=== PATIENT | male | born 1990 | race Caucasian/White ===

== ENCOUNTER 2019-11-26 18:41 | Inpatient (IN) | payer MEDICAID ==
[~2019-11-26] VITALS: Ht 180.3 cm; Wt 112.0 kg
[2019-11-26 18:41] VITALS: BP_SYST 137
--- NOTE | 2019-11-26 18:41 | NUR ---
BROUGHT BACK TO BED #7 AND TRIAGED. REPORT GIVEN TO SAMARIA
--- NOTE | 2019-11-26 18:42 | NUR ---
Placed in room 07 . Placed on student support advisor, blood pressure machine and pulse oximeter. To gown for exam. Side rails up.
--- NOTE | 2019-11-26 18:43 | NUR ---
ER at bedside examining patient.
[2019-11-26] MEDS ORDERED: NITROGLYCERIN 1 INCH (GM) OINT. TP ONE (18:47)
[2019-11-26] MEDS ORDERED: MORPHINE 4 MG/ML INJ. SYRINGE IVP ONE (18:47)
--- NOTE | 2019-11-26 19:00 | NUR ---
Pt C/O occational chest pain off and on since . Today since approx 8 hours ago. Substernal pain, radiating to left arm. VSS.
[2019-11-26 20:08] LABS: CALCIUM 9.3 mg/dL (8.4-11.0); CREATININE 0.97 mg/dL (0.55-1.30); POTASSIUM 3.4 mmol/L (3.5-5.1)
[2019-11-26 20:09] LABS: BASOPHILS % (AUTO) 0.3 % (0.0-2.0); EOSINOPHILS # (AUTO) 0.2 K/uL (0.0-0.4); EOSINOPHILS % (AUTO) 2.5 % (0.0-4.0); HEMATOCRIT 47.6 % (36-54); HEMOGLOBIN 16.2 g/dL (14.0-18.0); LYMPHOCYTES # (AUTO) 2.5 K/uL (1.0-5.5); LYMPHOCYTES % (AUTO) 24.6 % (20.5-51.5); MEAN CORPUSCULAR HEMOGLOBIN 29 pg (27-31); MEAN CORPUSCULAR HGB CONC 34 % (32-36); MEAN CORPUSCULAR VOLUME 85 fL (79.0-98.0); MONOCYTES # (AUTO) 0.8 K/uL (0.0-1.0); MONOCYTES % (AUTO) 7.6 % (1.7-9.3); NEUTROPHILS # (AUTO) 6.5 K/uL (1.8-7.7); PLATELET COUNT (AUTO) 259 K/uL (130-430); RED BLOOD CELL COUNT(AUTO) 5.58 MIL/uL (4.2-6.2); RED CELL DISTRIBUTION WIDTH 12.9 % (9.0-15.0)
[2019-11-26 20:14] LABS: ALBUMIN 3.8 g/dL (3.4-4.8); TOTAL BILIRUBIN 0.5 mg/dL (0.0-1.0)
--- NOTE | 2019-11-26 20:21 | NUR ---
ADMIT NOTE Received pt from ER to the floor with a diagnosis of chest pain. Admission process initiated. patient oriented to pain management, safety and call light-teach back done.
[2019-11-26 20:33] VITALS: BP_SYST 142
--- NOTE | 2019-11-26 21:00 | NUR ---
OPENING NOTE: Patient is awake, AOx4. No s/s of acute distress noted. Breathing is even and unlabored. Patient does not have any complaints of chest pain or pain at this time. IV site is patent, without s/s of infiltration or infection. Bed locked in lowest position, bed alarm not indicated as patient is ambulates independently with a steady gait. Call light with patient. Patient educated on use and importance of call light. Patient verbalized understanding and demonstrated proper use. Patient had no other needs at this time. Will continue to monitor.
[2019-11-26] MEDS ORDERED: ONDANSETRON HCL 4 MG/2 ML VIAL IVP PRN (22:00)
[2019-11-26] MEDS ORDERED: HYDROcodone/ACETAMIN 5-325 MG TAB (NORCO/ VICODIN) PO PRN (22:00)
[2019-11-26] MEDS ORDERED: ALBUTEROL SULFATE 0.083% 2.5 MG/3 ML VIAL.NEB INH PRN (22:00)
[2019-11-26] MEDS ORDERED: MORPHINE 4 MG/ML INJ. SYRINGE IVP PRN (22:00)
[2019-11-26] MEDS ORDERED: POTASSIUM CHLORIDE 20 MEQ TAB.PRT.SR PO ONE (22:15)
[2019-11-26 22:50] VITALS: BP_SYST 142
[2019-11-26] MEDS: NACL 0.9% 1,000 ML IV SCH (23:06)
--- NOTE | 2019-11-26 23:18 | NUR ---
ROUNDS/IVF STARTED/SNACKS PROVIDED: Patient is awake at this time. IVF were started. Patient tolerated well. IV is infusing well without s/s of infiltration or infection. Patient was provided with snacks. No other needs at this time. Will continue to monitor.
[2019-11-27 00:56] VITALS: BP_SYST 116
--- NOTE | 2019-11-27 01:30 | NUR ---
Consultation Paged Reason for Consultation: Chest Pain Was consult called: Y Person who was notified: Pily Consulting Physician: Dr. Stock Hot Die Press Operator Ordering Physician: Dr. Garcia
--- NOTE | 2019-11-27 01:38 | NUR ---
ROUNDS: Patient is asleep at this time. Breathing is even and unlabored. Bed locked in lowest position, call light with patient. Will continue to monitor.
--- NOTE | 2019-11-27 03:27 | NUR ---
ROUNDS: Patient is asleep at this time. Breathing is even and unlabored. Bed locked in lowest position, call light with patient. Will continue to monitor.
--- NOTE | 2019-11-27 05:34 | NUR ---
ROUNDS: Patient is asleep at this time. Breathing is even and unlabored. Bed locked in lowest position, call light with patient. Will continue to monitor.
--- NOTE | 2019-11-27 06:26 | NUR ---
CLOSING NOTE: Patient asleep at this time., No s/s of acute distress noted. Breathing is even and unlabored. IVF patent without s/s of infiltration or infection. All fall/safety precautions maintained throughout the shift. All needs met throughout the shift. Will continue to monitor until endorsement of care to dayshift nurse.
[2019-11-27 07:24] LABS: BASOPHILS % (AUTO) 0.3 % (0.0-2.0); EOSINOPHILS # (AUTO) 0.2 K/uL (0.0-0.4); EOSINOPHILS % (AUTO) 2.5 % (0.0-4.0); HEMATOCRIT 44.2 % (36-54); HEMOGLOBIN 14.9 g/dL (14.0-18.0); LYMPHOCYTES # (AUTO) 2.2 K/uL (1.0-5.5); LYMPHOCYTES % (AUTO) 22.6 % (20.5-51.5); MEAN CORPUSCULAR HEMOGLOBIN 29 pg (27-31); MEAN CORPUSCULAR HGB CONC 34 % (32-36); MEAN CORPUSCULAR VOLUME 86 fL (79.0-98.0); MONOCYTES # (AUTO) 0.7 K/uL (0.0-1.0); MONOCYTES % (AUTO) 6.9 % (1.7-9.3); NEUTROPHILS # (AUTO) 6.7 K/uL (1.8-7.7); NEUTROPHILS % (AUTO) 67.7 % (40.0-70.0); PLATELET COUNT (AUTO) 243 K/uL (130-430); RED BLOOD CELL COUNT(AUTO) 5.14 MIL/uL (4.2-6.2); RED CELL DISTRIBUTION WIDTH 12.8 % (9.0-15.0); WHITE BLOOD COUNT (AUTO) 9.9 K/uL (4.8-10.8)
--- NOTE | 2019-11-27 08:05 | NUR ---
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
[2019-11-27] MEDS: ASPIRIN 81 MG TAB.CHEW PO SCH (08:35)
--- NOTE | 2019-11-27 08:35 | NUR ---
Medication patient resting in bed, awake, denies pain, educated on medication uses and potential side effects, he verbalized understanding and tolerated well, no other needs at this time, bed in lowest position, two side rails up, call light within reach, fall and aspiration precautions in place.
[2019-11-27 09:42] LABS: ALANINE AMINOTRANSFERASE 33 U/L (12-78); ALBUMIN 3.4 g/dL (3.4-4.8); ANION GAP 12 (5-15); ASPARTATE AMINOTRANSFERASE 20 U/L (10-37); CALCIUM 8.3 mg/dL (8.4-11.0); CHLORIDE 105 mmol/L (98-107); CREATININE 0.96 mg/dL (0.55-1.30); GLUCOSE 102 mg/dL (70-99); SODIUM SERUM 142 mmol/L (136-145); TOTAL BILIRUBIN 0.6 mg/dL (0.0-1.0); UREA NITROGEN, BLOOD 13 mg/dL (8-21)
[2019-11-27 09:44] LABS: GFR AFRICAN AMERICAN 119 mL/min (>90)
[2019-11-27 10:30] VITALS: BP_SYST 129
[2019-11-27 11:18] LABS: CHOLESTEROL 175 mg/dL (<200); HDL CHOLESTEROL 44 mg/dL (>45); LDL CHOLESTEROL 106 mg/dL (<100); TRIGLYCERIDES 104 mg/dL (30-150)
[2019-11-27] MEDS: NACL 0.9% 1,000 ML IV SCH (11:30)
--- NOTE | 2019-11-27 11:30 | NUR ---
RN Rounds patient resting in bed, awake, denies pain, IV fluids hung and infusing well, IV line is patent, no s/s of infiltration, no other needs at this time, bed in lowest position, two side rails up, call light within reach, fall and aspiration precautions in place.
--- NOTE | 2019-11-27 11:55 | NUR ---
Dr. Pedro rounds assessed patient, discussed plan of care with the patient, patient verbalized understanding. Received orders to change patient status from OBS to inpatient, will follow up.
[2019-11-27 12:04] VITALS: BP_SYST 115; BP_SYST 121
[2019-11-27 12:09] VITALS: BP_SYST 115
--- NOTE | 2019-11-27 12:29 | NUR ---
Called Admitting spoke with Maia - regarding patient status change from OBS to inpatient.
--- NOTE | 2019-11-27 13:55 | NUR ---
RN rounds patient resting in bed, awake, denies pain, continuing to monitor the patient, bed in lowest position, two side rails up, call light within reach, fall and aspiration precautions in place.
--- NOTE | 2019-11-27 17:30 | NUR ---
RN rounds patient sitting on the side of the bed, awake, denies pain, IV line is patent and infusing well, continuing to monitor the patient, bed in lowest position, two side rails up, call light within reach, fall and aspiration precautions in place.
--- NOTE | 2019-11-27 18:34 | NUR ---
Closing note patient resting in bed, finishing dinner, provided with juice per his request, all needs met, will endorse report to NOC shift nurse, bed in lowest position, two side rails up, call light within reach, fall and aspiration precautions in place.
--- NOTE | 2019-11-27 20:20 | NUR ---
Pt received awoke alert OX4, lying in bed lungs clear, abdomen soft. IV access infiltrated, nurse removed and pt asked if he could wait before starting another IV. Bed in low position with wheels locked call light in reach. Pt denies having any pain.
--- NOTE | 2019-11-27 22:09 | NUR ---
Pt remain awoke. New IV site started in the left wrist 22g and IVF restarted, pt tolerated activity well and is resting comfortably, with the bed in low position with wheels locked call light in reach.
[2019-11-28] VITALS: BP_SYST 119
[2019-11-28] MEDS: NACL 0.9% 1,000 ML IV SCH ×2 (00:34→07:07)
--- NOTE | 2019-11-28 04:00 | NUR ---
Pt is resting comfortably, with eyes closed respirations even and non-labored I will continue to monitor the pt.
[2019-11-28 05:10] VITALS: BP_SYST 141
--- NOTE | 2019-11-28 06:14 | NUR ---
Pt remain in bed resting comfortably with eyes closed respirations even and non labored, IV intact and IVF running. Bed remain in low position with wheels locked call light in reach. Rounding on going.
--- NOTE | 2019-11-28 07:20 | NUR ---
opening note received bedside sbar from night RN, patient in bed, respirations even, non labored, bed in low and locked position, call light within reach
--- NOTE | 2019-11-28 07:28 | NUR ---
Pt is resting in bed with eyes closed respirations even and non labored, endorsed to day shift nurse.
[2019-11-28 08:00] VITALS: BP_SYST 120
[2019-11-28] MEDS: ASPIRIN 81 MG TAB.CHEW PO SCH ×2 (09:00→11:40)
--- NOTE | 2019-11-28 09:50 | NUR ---
stress test patient complained of pain to iv site, catheter crooked, non flushable, removed iv, catheter intact, bandage applied, no bleeding at iv site, patient transported via wheel chair for stress test
--- NOTE | 2019-11-28 11:00 | NUR ---
nurse note removed patients tele box, no signs of distress noted
[2019-11-28 12:00] VITALS: BP_SYST 129
[2019-11-28 12:41] VITALS: BP_SYST 129
--- NOTE | 2019-11-28 13:45 | NUR ---
D/C Patient Patient given medication reconciliation form and D/C instructions. Exit Care provided. Patient verbalized understanding. Ambulatory with steady gait for discharge to home. Patient in stable condition, ID band removed. Patient educated on pain management. All belongings sent with patient. Patient taken by wheelchair to parking lot.
== END 2019-11-28 13:40 | disposition home or self-care (01) | DRG 243 ==
LOC: SED 18:41 → STU 19:35 → OBSVTOIN 11-27 12:16
PROVIDERS: ADMIT Internal Medicine Hospice and Palliative Medicine; ATTEND Internal Medicine Hospice and Palliative Medicine
DX: K21.9 Gastro-esophageal reflux disease without esophagitis (principal); E83.52 Hypercalcemia; E87.6 Hypokalemia; I20.9 Angina pectoris, unspecified; E66.9 Obesity, unspecified; E78.5 Hyperlipidemia, unspecified; F17.210 Nicotine dependence, cigarettes, uncomplicated; R73.9 Hyperglycemia, unspecified; Z68.34 Body mass index [BMI] 34.0-34.9, adult
CPT/HCPCS: 36415; 71045; 80053; 80061; 83880; 84484; 85025; 85379; 93005; 93017; 93306; 96374; 99291; G0378; J2270; J7030